=== PATIENT | female | born 1970 | race Caucasian/White ===

== ENCOUNTER 2016-04-25 12:07 | Emergency (ER) | payer OTHER ==
[~2016-04-25] VITALS: Ht 160 cm; Wt 82.0 kg
[2016-04-25 15:31] LABS: HEMATOCRIT 40.4 % (36.0-46.0); MCH 30.2 PG (29.0-34.0); MCHC 34.2 G/DL (30.0-36.0); MCV 88.4 FL (83-99); MEAN PLAT.VOLUME 9.4 uM^3 (9.5-12.4); PLATELET COUNT 238 K/uL (156-360); RBC DIS.WIDTH-CV 13.4 % (11.8-14.6); RBC DIS.WIDTH-SD 42.4 % (39-53); RED BLOOD COUNT 4.57 M/uL (3.80-5.20)
[2016-04-25 15:39] LABS: CHLORIDE 104 mEq/L (99-109); POTASSIUM 4.1 mEq/L (3.7-5.4); SODIUM 137 mEq/L (136-147)
[2016-04-25 15:41] LABS: GLUCOSE 102 mg/dL (70-99)
[2016-04-25 15:42] LABS: ANION GAP 11 MEQ/L (2-14)
[2016-04-25 15:45] LABS: GFR ESTIMATE (CALCULATED) > 59 mL/min/
[2016-04-25 15:46] LABS: UREA NITROGEN (BUN) 13 mg/dL (9-23)
[2016-04-25 16:04] LABS: ERTH.SED.RATE 38 MM/HR (0-20)
[2016-04-25 18:02] VITALS: BP 142/98
[2016-04-26 10:15] LABS: LYME DISEASE SEROLOGY SCREEN NEGATIVE (NEGATIVE)
== END 2016-04-25 18:13 | disposition home or self-care (01) ==
LOC: RME 12:07 → EME 12:07 → RME 18:13
PROVIDERS: Physician Assistant
DX: M25.512 Pain in left shoulder (principal); M25.561 Pain in right knee; M25.562 Pain in left knee; Z85.43 Personal history of malignant neoplasm of ovary; F17.200 Nicotine dependence, unspecified, uncomplicated
CPT/HCPCS: 80048; 85027; 85651; 86618; 93926; 99281; 99284; J3010